=== PATIENT | female | born 1965 | race Caucasian/White ===

== ENCOUNTER → 2016-12-10 | Outpatient (CLI) | payer BC ==
[~2016-12-10] MED LIST: ESCI10TA17 PO
== END | disposition home or self-care (01) ==
LOC: C.PAPS 12:57
PROVIDERS: ATTEND Family Medicine
DX: Z12.72 Encounter for screening for malignant neoplasm of vagina (principal)

== ENCOUNTER → 2017-10-27 | Outpatient (CLI) | payer BC ==
--- NOTE | 2017-10-27 14:12 | MAMMOGRAPHY REPORT ---
BILATERAL DIGITAL SCREENING MAMMOGRAM TOMOSYNTHESIS WITH CAD: 10/27/2017 CLINICAL HISTORY: Routine screening. Patient has no complaints. TECHNIQUE: Breast tomosynthesis in addition to standard 2D mammography was performed. Current study was also evaluated with a Computer Aided Detection (CAD) system. COMPARISON: Comparison is made to exams dated: 04/20/2016 mammogram, 08/30/2015 mammogram, 08/16/2015 mammogram, 08/15/2014 mammogram, 02/27/2014 mammogram, and 08/25/2013 ultrasound - [facility]. BREAST COMPOSITION: The tissue of both breasts is heterogeneously dense, which may obscure small mas ses. FINDINGS: The parenchymal pattern is unchanged. No developing mass, architectural distortion or clus ter of suspicious microcalcifications is seen in either breast. IMPRESSION: ACR BI-RADS CATEGORY 2: BENIGN There is no mammographic evidence of malignancy. A 1 year screening mammogram is recommended. The pa tient will receive written notification of the results. Approximately 10% of breast cancers are not detected with mammography. A negative mammographic report should not delay biopsy if a clinically suggestive mass is present. Maricruz Cohen M.D. ay/:10/27/2017 13:23:25 Instrumental Music Teacher: Ravi Nogueira, M, [facility] letter sent: Normal 1/2 BI-RADS Code: ACR BI-RADS Category 2: Benign
== END | disposition home or self-care (01) ==
LOC: C.MAMM 12:45
PROVIDERS: ATTEND Family Medicine
DX: Z12.31 Encounter for screening mammogram for malignant neoplasm of breast (principal)

== ENCOUNTER → 2017-12-16 | Outpatient (CLI) | payer OTHER | END | disposition home or self-care (01) | LOC: C.PAPS 10:43 | PROVIDERS: ATTEND Family Medicine | DX: Z12.4 Encounter for screening for malignant neoplasm of cervix (principal); R87.616 Satisfactory cervical smear but lacking transformation zone ==

== ENCOUNTER → 2017-12-30 | Outpatient (CLI) | payer OTHER ==
[~2017-12-30] MED LIST changes: +PERFLUTREN LIPID MICROSPHERE (DEFINITY) IV ONE
--- NOTE | 2017-12-30 18:00 | EXERCISE STRESS ECHO ---
*NOTICE TO RECEIVING LIBERTARIAN AGENCY This information is strictly Confidential and protected under [place] law. [place] law prohibits you from making any further disclosure of this information unless further disclosure is expressly permitted by the written consent of the person to whom it pertains or is authorized by law. A general authorization for the release of medical or other information is not sufficient for this purpose. Hospital accepts no responsibility if the information is made available to any other person, INCLUDING THE PATIENT. Interpretation Summary * Name: AMBREEN BRANHAM Study Date: 12/30/2017 10:14 AM BP: 100/54 mmHg * Patient Location: [facility] HR: 69 * : 1965 (M/d/yyyy) Gender: Female Height: 68 in * Age: 52 yrs Ethnicity: [place] Weight: 165 lb * Ordering Physician: Shalini Owen * Referring Physician: Servando Owen * Performed By: Morena Liang RDCS * * Reason For Study: ABNORMAL EKG * BSA: 1.9 m2 * -- Conclusions -- * Stress Echo: * 1. Negative stress echo for ischemia at 99 % MPHR. * 2. Negative exercise ECG for ischemia at 99 % MPHR. * 3. Appropriate blood pressure response to exercise. * 4. No arrhythmia. * 5. Study terminated due to fatigue. No chest pain reported. * 6. Fair exercise tolerance. * 7. Technically difficult study, enhanced with IV Definity. * Echo: * 1. Normal left ventricular size and systolic function. EF 60-65%. No regional wall motion abnormalities. No left ventricular hypertrophy. No significant diastolic dysfunction. * 2. Mild mitral regurgitation. * 3. Technically difficult study. * 4. Normal estimated right ventricular systolic pressure; 20 mmHg. * 5. No prior study available for comparison. Procedure Details * A contrast injection of Definity was performed to improve assessment of LV function. * Contrast was injected into an intravenous site in the right arm. * One vial of Definity ultrasound contrast was diluted in normal saline to a total volume of 10 ml. A total of '4' ml of solution was administered during imaging. * Lot # [id number] of Definity utilized for procedure. * Expiration date DEC 27. * The attending nurse who injected the contrast agent was CANDIDA CENTENO RN. Left Ventricle * The left ventricle is normal in size. * There is normal left ventricular wall thickness. * Ejection Fraction = 60-65%. * Left ventricular systolic function is normal. * The left ventricular ejection fraction increases normally with stress. The left ventricular end-systolic cavity size reduces post-stress (normal response). The left ventricular wall motion with stress is normal. * No regional wall motion abnormalities noted. * Resting wall motion: Normal. Stress wall motion: Appropriate increase in Left ventricular systolic function and decrease in cavity size. No stress induced segmental wall motion abnormalities. Right Ventricle * The right ventricle is normal in size and function. * The right ventricular systolic function is normal as assessed by tricuspid annular plane systolic excursion (TAPSE) (normal >1.5 cm). Atria * The left atrial size is normal. * Right atrial size is normal. * There is no evidence of atrial septal defect, but resolution does not allow assessment for a patent foramen ovale. Mitral Valve * The mitral valve is grossly normal. * There is no mitral valve stenosis. * There is mild mitral regurgitation. Tricuspid Valve * The tricuspid valve is not well visualized. * There is no tricuspid stenosis. * Significant tricuspid regurgitation is absent. Aortic Valve * The aortic valve is not well visualized. * No hemodynamically significant valvular aortic stenosis. * There is no significant aortic regurgitation. Pulmonic Valve * The pulmonary valve is inadequately visualized, but the Doppler data is adequate for interpretation. * There is no significant pulmonary regurgitation. Great Vessels * The aortic root is normal size. * Normal pulmonary venous flow pattern. Normal IVC size and inspiratory collapse. Pericardium * There is no pericardial effusion. Stress Parameters * SINUS RHYTHM AT 69 BPM. * Upsloping ST depression in leads II, III, aVF. * No arrhythmia were noted with stress. * Rest heart rate was '69' BPM. * Rest blood pressure was '100/54' * Maximum heart rate achieved was 169 bpm. * Maximum heart rate was 99 % of maximum age-predicted heart rate. * Maximum blood pressure was '145/46' * Total exercise time was '7:00' * Maximum exercise MET level achieved was '8.50' METS * Maximum treadmill speed was '3.40' miles per hour. * Maximum treadmill elevation was '14.00'% grade. * Exercise was terminated due to 'ACHIEVING TARGET HR' MMode 2D Measurements and Calculations IVSd 0.82 cm IVSs 1.2 cm LVIDd 4.0 cm LVIDs 2.4 cm LVPWd 1.0 cm LVPWs 1.3 cm IVS/LVPW 0.82 FS 40.2 % EDV(Teich) 70.7 ml ESV(Teich) 20.2 ml EF(Teich) 71.5 % EDV(cubed) 64.8 ml ESV(cubed) 13.8 ml EF(cubed) 78.7 % % IVS thick 42.2 % % LVPW thick 28.8 % LV mass(C)d 112.3 grams LV mass(C)dI 59.6 grams/m\S\2 LV mass(C)s 84.5 grams LV mass(C)sI 44.9 grams/m\S\2 SV(Teich) 50.5 ml SI(Teich) 26.8 ml/m\S\2 SV(cubed) 50.9 ml SI(cubed) 27.0 ml/m\S\2 Ao root diam 2.7 cm Ao root area 5.6 cm\S\2 LA dimension 3.1 cm LA/Ao 1.2 LVAd ap4 28.9 cm\S\2 LVLd ap4 8.7 cm EDV(MOD-sp4) 79.6 ml EDV(sp4-el) 81.9 ml LVAs ap4 16.0 cm\S\2 LVLs ap4 7.4 cm ESV(MOD-sp4) 30.5 ml ESV(sp4-el) 29.4 ml EF(MOD-sp4) 61.7 % EF(sp4-el) 64.1 % LVAd ap2 26.1 cm\S\2 LVLd ap2 8.7 cm EDV(MOD-sp2) 62.8 ml EDV(sp2-el) 66.2 ml LVAs ap2 14.2 cm\S\2 LVLs ap2 7.4 cm ESV(MOD-sp2) 22.8 ml ESV(sp2-el) 23.0 ml EF(MOD-sp2) 63.7 % EF(sp2-el) 65.3 % LVLd %diff 0.73 % EDV(MOD-bp) 71.7 ml LVLs %diff 0.45 % ESV(MOD-bp) 26.5 ml EF(MOD-bp) 63.1 % SV(MOD-sp4) 49.1 ml SI(MOD-sp4) 26.1 ml/m\S\2 SV(MOD-sp2) 40.0 ml SI(MOD-sp2) 21.2 ml/m\S\2 SV(MOD-bp) 45.2 ml SI(MOD-bp) 24.0 ml/m\S\2 SV(sp4-el) 52.4 ml SI(sp4-el) 27.8 ml/m\S\2 SV(sp2-el) 43.2 ml SI(sp2-el) 22.9 ml/m\S\2 Doppler Measurements and Calculations MV E max veronica 90.1 cm/sec MV A max veronica 84.7 cm/sec MV E/A 1.1 MV dec time 0.29 sec Ao V2 max 175.6 cm/sec Ao max PG 12.3 mmHg Ao max PG (full) 7.7 mmHg Ao V2 mean 108.1 cm/sec Ao mean PG 5.5 mmHg Ao mean PG (full) 3.6 mmHg Ao V2 VTI 36.5 cm LV V1 max PG 4.7 mmHg LV V1 mean PG 1.8 mmHg LV V1 max 108.0 cm/sec LV V1 mean 60.5 cm/sec LV V1 VTI 23.8 cm SV(Ao) 203.1 ml SI(Ao) 107.8 ml/m\S\2 TR max veronica 202.9 cm/sec RVSP(TR) 19.5 mmHg RAP systole 3.0 mmHg
== END | disposition home or self-care (01) ==
LOC: C.CPL 10:05
PROVIDERS: ATTEND Family Medicine
DX: R94.31 Abnormal electrocardiogram [ECG] [EKG] (principal)